=== PATIENT | female | born 1975 | race Caucasian/White ===

== ENCOUNTER 2023-11-25 06:26 | Emergency (ER) | payer SELFPAY ==
[~2023-11-25] VITALS: Ht 162.6 cm; Wt 68.0 kg
[2023-11-25 06:36] VITALS: BP_SYST 111; PULSE 74; RESP 19; TEMP 97.4; O2SAT 100
[2023-11-25] MEDS: traMADol HCL HCL 50 MG TABLET (ULTRAM) PO ONE (07:15)
[2023-11-25] MEDS ORDERED: NAPR-688 PO (07:56)
[2023-11-25 08:55] VITALS: BP_SYST 115; PULSE 74; RESP 18; TEMP 97.4; O2SAT 100
== END 2023-11-25 08:55 | disposition home or self-care (01) ==
LOC: SED 06:26
DX: M79.605 Pain in left leg (principal); M79.604 Pain in right leg; G62.9 Polyneuropathy, unspecified; Z59.00 Homelessness unspecified; Z79.899 Other long term (current) drug therapy
CPT/HCPCS: 99283